=== PATIENT | female | born 2000 | race African-American/Black ===

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

== ENCOUNTER 2022-04-28 17:45 | Emergency (ER) | payer OTHER, SELFPAY ==
[2022-04-28 18:22] LABS: #Basophils 0.1 thou/uL (0.0-0.2); #Eosinphils 0.1 thou/uL (0.0-0.7); #Lymphocytes 1.9 thou/uL (1.20-3.40); #Monocytes 0.5 thou/uL (0.11-0.59); #Neutrophils 6.4 thou/uL (1.40-6.50); %Basophils 0.8 % (0.0-1.0); %Eosinophils 0.9 % (0.0-10.0); %Lymphocytes 21.2 % (28.0-48.0); %Monocytes 6.1 % (0.0-4.0); Hemoglobin 9.6 g/dL (12.0-16.0); Mean Corpuscular HGB CONC 33.7 g/dL (32.0-36.0); Mean Corpuscular Hemoglobin 33.2 pg (25.0-35.0); Mean Corpuscular Volume 98.6 fL (78.0-98.0); Platelet Count 259 thou/uL (130-400); RBC Distribution Width 11.5 % (11.5-14.5); White Blood Cell (WBC) Count 8.9 thou/uL (4.8-10.8)
[2022-04-28 18:35] LABS: BHCG - Serum POSITIVE (NEGATIVE); Pregs Control Background? CLEAR/WHITE (CLR/WHITE); Pregs Control Bar Appear? YES (CONTROL BAR)
[2022-04-28 18:51] LABS: ALT (SGPT) 8 U/L (8-55); AST (SGOT) 14 U/L (5-30); Albumin 3.9 g/dL (3.5-5.0); Alkaline Phosphatase 42 U/L (40-100); Anion Gap 12 mmol/L (10-20); BUN (Urea Nitrogen) 9 mg/dL (8.4-21.0); Bilirubin, Total 0.4 mg/dL (0.2-1.2); Calc. Creatinine Clearance 0 mL/min (70-130); Calcium 9.4 mg/dL (7.8-10.44); Carbon Dioxide 23 mmol/L (22-29); Chloride 105 mmol/L (98-107); Estimated GFR 97; Globulin 3.7 g/dL (2.4-3.5); Glucose 110 mg/dL (70-105); Lipase 22 U/L (8-78); Potassium 3.9 mmol/L (3.5-5.1); Protein, Total 7.6 g/dL (6.0-8.3); Sodium 136 mmol/L (136-145)
[2022-04-28 19:52] LABS: Bilirubin Negative (Negative); Blood, Urine Negative (Negative); Clarity Clear (Clear); Glucose, Urine (Dipstick) Normal (Negative); Ketone, Urine Trace mg/dL (Negative); Leukocyte Negative Leu/uL (Negative); Nitrite Negative (Negative); Protein, Urine (Dipstick) 20 mg/dL (Neg-Trace); Specific Gravity, Urine 1.035 (1.002-1.036); pH, Urine 5.5 (5.0-9.0)
[2022-04-28] MEDS ORDERED: Ondansetron ODT 4 MG TAB ONE (19:57)
== END 2022-04-28 20:02 | disposition home or self-care (01) ==
LOC: ERS 17:45
DX: R53.81 Other malaise (principal); Z33.1 Pregnant state, incidental
CPT/HCPCS: 36415; 80053; 81003; 83690; 84703; 85025; 99283; Q0162

== ENCOUNTER 2022-05-26 05:38 | Emergency (ER) | payer SELFPAY ==
[2022-05-26] MEDS ORDERED: Lidocaine 1% MPF 2 ML VIAL ONE (06:15)
[2022-05-26] MEDS ORDERED: Ketorolac Tromethamine 30 MG/ML VIAL ONE (06:16)
== END 2022-05-26 06:47 | disposition home or self-care (01) ==
LOC: ERS 05:38
DX: K04.7 Periapical abscess without sinus (principal)
CPT/HCPCS: 41800; 96372; J1885